=== PATIENT | female | born 1990 | race American Indian/Alaskan Native ===

== ENCOUNTER 2016-11-08 12:43 | Emergency (ER) | payer SELFPAY ==
[2016-11-08 12:55] VITALS: BP 125/85
[2016-11-08 13:25] LABS: Bilirubin,Urine NEG (Negative); Blood,Urine LG (Negative); Ketones,Urine NEG (Negative); Leukocyte Esterase,Urine NEG (Negative); Mucus,Urine 3+ /HPF; Nitrite,Urine NEG (Negative); Protein,Urine <15 mg/dL mg/dL (Negative)
[2016-11-08 13:26] LABS: RBC,Urine > 182.0 /HPF (0.0-6.0)
[2016-11-08 13:38] LABS: Basophils % (Auto) 0.7 % (0.0-1.8); Eosinophils % (Auto) 0.6 % (0.0-4.3); Hemoglobin 14.6 gm/dl (10.1-14.3); Mean Corpuscular HGB Conc 34 % (30-34); Mean Corpuscular Hemoglobin 32 pg (28-32); Mean Corpuscular Volume 95 fl (79-97); Platelet Count 152 K/mm3 (140-440); Red Blood Count 4.53 M/mm3 (3.65-5.03); Red Cell Distribution Width 13.2 % (13.2-15.2); White Blood Count 5.1 K/mm3 (4.5-11.0)
[2016-11-08 13:51] LABS: Anion Gap 18 mmol/L; Blood Urea Nitrogen 13 mg/dL (7-17); Calcium 9.1 mg/dL (8.4-10.2); Carbon Dioxide 23 mmol/L (22-30); Chloride 101.1 mmol/L (98-107); Glucose 89 mg/dL (65-100); Potassium 3.8 mmol/L (3.6-5.0); Sodium 138 mmol/L (137-145)
--- NOTE | 2016-11-11 19:04 | ED Elopement Review ---
ED Pt Elopement review - Results review Lab results: Laboratory Tests 11/08/16 11/08/16 11/08/16 13:04 13:18 13:18 WBC 5.1 RBC 4.53 Hgb 14.6 H Hct 43.0 H MCV 95 MCH 32 MCHC 34 RDW 13.2 Plt Count 152 Lymph % (Auto) 29.5 [place] % (Auto) 5.8 Eos % (Auto) 0.6 Baso % (Auto) 0.7 Lymph # 1.5 [place] # 0.3 Eos # 0.0 Baso # 0.0 Seg Neutrophils % 63.4 Seg Neutrophils # 3.2 Sodium 138 Potassium 3.8 Chloride 101.1 Carbon Dioxide 23 Anion Gap 18 BUN 13 Creatinine 0.5 L Estimated GFR > 60 BUN/Creatinine Ratio 26.00 Glucose 89 Calcium 9.1 Urine Color Yellow Urine Turbidity Clear Urine pH 6.0 Ur Specific [place] 1.019 Urine Protein <15 mg/dl Urine Glucose (UA) Neg Urine Ketones Neg Urine Blood Lg Urine Nitrite Neg Ur Reducing Substances Not Reportable Urine Bilirubin Neg Urine Ictotest Not Reportable Urine Urobilinogen 2.0 Ur Leukocyte Esterase Neg Urine WBC (Auto) 1.0 Urine RBC (Auto) > 182.0 U Epithel Cells (Auto) 3.0 Urine Mucus 3+ Urine HCG, Qual Negative - Call Back decision Pt Call Back Decision: Pt to F/U with PMD
== END 2016-11-08 22:00 | disposition left against medical advice (07) ==
LOC: ED 12:43
DX: R53.1 Weakness (principal); R11.0 Nausea; G43.909 Migraine, unspecified, not intractable, without status migrainosus; J45.909 Unspecified asthma, uncomplicated; Z88.1 Allergy status to other antibiotic agents; Z91.018 Allergy to other foods; Z53.21 Procedure and treatment not carried out due to patient leaving prior to being seen by health care provider
CPT/HCPCS: 36415; 80048; 81001; 81025; 85025